=== PATIENT | male | born 1955 | race Caucasian/White ===

== ENCOUNTER 2016-11-02 09:25 | Outpatient (CLI) | payer MEDICARE, MEDICAID ==
[2016-11-02 13:35] LABS: Hemoglobin A1c 6.2 % (4.0-6.0)
[2016-11-02 13:57] LABS: #Basophils 0.2 thou/uL (0.0-0.2); #Eosinphils 0.6 thou/uL (0.0-0.7); #Lymphocytes 4.2 thou/uL (1.20-3.40); #Monocytes 0.6 thou/uL (0.11-0.59); %Basophils 1.2 % (0.0-1.0); %Eosinophils 4.2 % (0.0-10.0); %Monocytes 4.4 % (0.0-10.0); Hematocrit 32.4 % (42.0-52.0); Mean Platelet Volume 7.4 fL (7.4-10.4); Red Blood Cell (RBC) Count 4.26 mill/uL (4.70-6.10); White Blood Cell (WBC) Count 13.5 thou/uL (4.8-10.8)
[2016-11-02 13:58] LABS: Anisocytosis SLIGHT = 6-15 cells (100X) (0-5/hpf); Hypochromia SLIGHT = 6-15 cells (100X) (0-5/hpf); Microcytosis SLIGHT = 6-15 cells (100X) (0-5/hpf)
== END 2016-11-02 09:26 | disposition home or self-care (01) ==
LOC: NAVSJIPCSP 09:25
PROVIDERS: ATTEND Internal Medicine
DX: E78.5 Hyperlipidemia, unspecified (principal); E11.9 Type 2 diabetes mellitus without complications; D50.9 Iron deficiency anemia, unspecified; Z79.899 Other long term (current) drug therapy
CPT/HCPCS: 36415; 80061; 83036; 85025

== ENCOUNTER 2016-11-11 12:53 | Outpatient (CLI) | payer MEDICARE, MEDICAID ==
--- NOTE | 2016-11-11 13:24 | RAD ---
RIGHT KNEE 4 VIEWS: HISTORY: Right knee pain. FINDINGS: There are mild degenerative changes. No fracture, dislocation, or bone destruction is identified. There are vascular calcifications. There is chondrocalcinosis in the tibiofemoral compartment joint spaces. IMPRESSION: Mild osteoarthritis of the right knee. POS: [facility]
== END 2016-11-11 12:54 | disposition home or self-care (01) ==
LOC: NAV RAD 12:53
PROVIDERS: ATTEND Internal Medicine
DX: M25.561 Pain in right knee (principal); M17.11 Unilateral primary osteoarthritis, right knee

== ENCOUNTER 2017-02-15 11:47 | Outpatient (CLI) | payer MEDICARE, MEDICAID ==
[2017-02-15 13:28] LABS: ALT (SGPT) 9 U/L (8-55); AST (SGOT) 13 U/L (5-34); Albumin 3.7 g/dL (3.4-4.8); Alkaline Phosphatase 114 U/L (40-150); Anion Gap 17 mmol/L (10-20); BUN (Urea Nitrogen) 20 mg/dL (8.4-25.7); Bilirubin, Total 0.3 mg/dL (0.2-1.2); Calc. Creatinine Clearance 0 mL/min (70-130); Carbon Dioxide 25 mmol/L (23-31); Chloride 101 mmol/L (98-107); Cholesterol 196 mg/dl (< 200 Desired); Estimated GFR-MDRD 49; Glucose 183 mg/dL (80-115); HDL Cholesterol 49 mg/dL (>60 Neg Risk); LDL Cholesterol, Calculated 112 mg/dL; Potassium 5.8 mmol/L (3.5-5.1); Protein, Total 6.7 g/dL (5.8-8.1); Sodium 137 mmol/L (136-145); Triglycerides 174 mg/dL (Less than 150)
[2017-02-15 14:24] LABS: #Basophils 0.1 thou/uL (0.0-0.2); #Eosinphils 0.9 thou/uL (0.0-0.7); #Lymphocytes 2.9 thou/uL (1.20-3.40); #Monocytes 0.6 thou/uL (0.11-0.59); #Neutrophils 5.8 thou/uL (1.40-6.50); %Basophils 1.1 % (0.0-1.0); %Eosinophils 8.8 % (0.0-10.0); %Lymphocytes 28.1 % (21.0-51.0); %Monocytes 5.5 % (0.0-10.0); %Neutrophils 56.6 % (42.0-75.0); Hemoglobin 10.1 g/dL (14.0-18.0); Mean Corpuscular HGB CONC 29.3 g/dL (32.0-36.0); Mean Corpuscular Volume 81.8 fl (80.0-94.0); Mean Platelet Volume 7.7 fL (7.4-10.4); Platelet Count 285 thou/uL (130-400); RBC Distribution Width 24.3 % (11.5-14.5); Red Blood Cell (RBC) Count 4.23 mill/uL (4.70-6.10); White Blood Cell (WBC) Count 10.2 thou/uL (4.8-10.8)
[2017-02-15 14:25] LABS: Hypochromia SLIGHT = 6-15 cells (100X) (0-5/hpf); MDiff Complete? YES; PLT Morphology Comment Appears Adequate
[2017-02-15 16:04] LABS: Hemoglobin A1c 5.9 % (4.0-6.0)
[2017-02-15 18:30] LABS: Hep C IgG Ab Non-Reactive (NonReactive); Hep C Index 0.05 S/CO (0-0.79)
[2017-02-15 18:49] LABS: Creatinine, Urine 57.49 mg/dL (63-166)
[2017-02-15 18:52] LABS: Microalbumin Urine 87.9 mg/dL (0.5-50.0)
== END 2017-02-15 11:48 | disposition home or self-care (01) ==
LOC: NAVSJIPCSP 11:47
PROVIDERS: ATTEND Internal Medicine
DX: Z12.5 Encounter for screening for malignant neoplasm of prostate (principal); E11.40 Type 2 diabetes mellitus with diabetic neuropathy, unspecified; D50.9 Iron deficiency anemia, unspecified; E78.5 Hyperlipidemia, unspecified; Z79.899 Other long term (current) drug therapy; Z72.89 Other problems related to lifestyle
CPT/HCPCS: 36415; 80053; 80061; 82043; 83036; 85025; 86803; G0103

== ENCOUNTER 2017-03-02 09:57 | Outpatient (CLI) | payer MEDICARE, MEDICAID ==
[2017-03-02 12:50] LABS: Anion Gap 18 mmol/L (10-20); BUN (Urea Nitrogen) 19 mg/dL (8.4-25.7); Calc. Creatinine Clearance 0 mL/min (70-130); Calcium 8.9 mg/dL (7.8-10.44); Carbon Dioxide 20 mmol/L (23-31); Chloride 111 mmol/L (98-107); Estimated GFR-MDRD 48; Glucose 173 mg/dL (80-115); Potassium 5.4 mmol/L (3.5-5.1); Sodium 144 mmol/L (136-145)
== END 2017-03-02 09:58 ==
LOC: NAVSJIPCSP 09:57
PROVIDERS: ATTEND Internal Medicine
DX: E87.5 Hyperkalemia (principal); Z79.899 Other long term (current) drug therapy
CPT/HCPCS: 36415; 80048

== ENCOUNTER 2017-05-04 10:44 | Outpatient (CLI) | payer MEDICARE, MEDICAID ==
--- NOTE | 2017-05-04 11:51 | RAD ---
THREE VIEWS RIGHT FOOT: Date: 05-04-17 History: Diabetic foot ulcer to the right fifth toe. FINDINGS: There is bandaging material overlying the fifth toe distally along the lateral margin on the frontal film. The bones appear demineralized. No obvious bone destruction. No subcutaneous gas noted. The location of the ulcer and adjacent osseo us structures makes assessment for bone destruction difficult. IMPRESSION: Bandaging material overlies the fifth digit, slightly limiting assessment. No obvious bone destructi on is seen. However, if there is concern for osteomyelitis, an MRI of the foot is advised for more s ensitive assessment. POS: [facility]
== END 2017-05-04 10:45 | disposition home or self-care (01) ==
LOC: NAV RAD 10:44
PROVIDERS: ATTEND Podiatrist Foot & Ankle Surgery
DX: E11.621 Type 2 diabetes mellitus with foot ulcer (principal); L97.519 Non-pressure chronic ulcer of other part of right foot with unspecified severity

== ENCOUNTER 2017-06-08 09:35 | Outpatient (CLI) | payer MEDICARE, MEDICAID ==
[2017-06-08 12:25] LABS: #Basophils 0.1 thou/uL (0.0-0.2); #Eosinphils 0.6 thou/uL (0.0-0.7); #Lymphocytes 3.6 thou/uL (1.20-3.40); #Monocytes 0.2 thou/uL (0.11-0.59); #Neutrophils 6.2 thou/uL (1.40-6.50); %Basophils 0.6 % (0.0-1.0); %Eosinophils 5.5 % (0.0-10.0); %Monocytes 1.8 % (0.0-10.0); %Neutrophils 58.1 % (42.0-75.0); Hemoglobin 12.4 g/dL (14.0-18.0); Mean Corpuscular Hemoglobin 28.1 pg (27.0-31.0); Mean Corpuscular Volume 90.8 fl (80.0-94.0); Platelet Count 332 thou/uL (130-400); RBC Distribution Width 14.7 % (11.5-14.5); Red Blood Cell (RBC) Count 4.39 mill/uL (4.70-6.10); White Blood Cell (WBC) Count 10.6 thou/uL (4.8-10.8)
[2017-06-08 12:57] LABS: ALT (SGPT) 6 U/L (8-55); AST (SGOT) 8 U/L (5-34); Albumin 3.9 g/dL (3.4-4.8); Alkaline Phosphatase 147 U/L (40-150); Anion Gap 21 mmol/L (10-20); BUN (Urea Nitrogen) 19 mg/dL (8.4-25.7); Bilirubin, Total 0.3 mg/dL (0.2-1.2); Calc. Creatinine Clearance 0 mL/min (70-130); Calcium 9.4 mg/dL (7.8-10.44); Carbon Dioxide 24 mmol/L (23-31); Cardiac Risk 5.4 (Less than 4.5); Chloride 100 mmol/L (98-107); Cholesterol 287 mg/dl (< 200 Desired); Estimated GFR-MDRD 38; Globulin 3.4 g/dL (2.4-3.5); Glucose 177 mg/dL (80-115); HDL Cholesterol 53 mg/dL (>60 Neg Risk); LDL Cholesterol, Calculated 193 mg/dL; Potassium 5.3 mmol/L (3.5-5.1); Protein, Total 7.3 g/dL (5.8-8.1); Sodium 140 mmol/L (136-145); Triglycerides 206 mg/dL (Less than 150)
[2017-06-08 13:07] LABS: Hemoglobin A1c 6.7 % (4.0-6.0)
== END 2017-06-08 09:36 | disposition home or self-care (01) ==
LOC: NAVSJIPCSP 09:35
PROVIDERS: ATTEND Internal Medicine
DX: E11.9 Type 2 diabetes mellitus without complications (principal); E78.5 Hyperlipidemia, unspecified; D50.9 Iron deficiency anemia, unspecified; Z79.899 Other long term (current) drug therapy
CPT/HCPCS: 36415; 80053; 80061; 83036; 85025

== ENCOUNTER 2017-06-15 10:32 | Outpatient (CLI) | payer MEDICARE, MEDICAID ==
--- NOTE | 2017-06-15 10:57 | RAD ---
RIGHT RIBS FOUR VIEWS: History: Fall, injury to right ribs. FINDINGS: No evidence of rib fracture. No other rib lesions seen. Right lung appears clear. IMPRESSION: No evidence of rib fracture identified. POS: [facility]
--- NOTE | 2017-06-15 12:14 | RAD ---
RIGHT FOOT THREE VIEWS: History: 61-year-old male with right little toe infection. Comparison: 05-04-17 FINDINGS: There is extensive bony destruction of the middle and distal phalanges of the fifth toe as well as s ignificant bony demineralization and some erosive and destructive changes of the proximal phalanx of the fifth toe, evidence for severe osteomyelitis and secondary bony and soft tissue destructive arielle nges. There is significant diffuse bony demineralization. IMPRESSION: Soft tissue and bony destructive changes of the middle and distal phalanges of the fifth toe as well as abnormal bone changes in the proximal phalanx, evidence for extensive osteomyelitis and resultan t bony and soft tissue destructive changes. POS: [facility]
== END 2017-06-15 10:33 | disposition home or self-care (01) ==
LOC: NAV RAD 10:32
PROVIDERS: ATTEND Internal Medicine
DX: E11.621 Type 2 diabetes mellitus with foot ulcer (principal); R07.81 Pleurodynia; W19.XXXA Unspecified fall, initial encounter; M86.171 Other acute osteomyelitis, right ankle and foot

== ENCOUNTER 2017-06-24 16:16 | Inpatient (IN) | payer MEDICARE, MEDICAID ==
[2017-06-24] MEDS ORDERED: Lidocaine 2% Jelly 5 ML TUBE ONE (18:28)
[2017-06-24] MEDS: Lidocaine 2% Jelly 5 ML TUBE TOP PRN (18:35)
[2017-06-24] MEDS: traMADol HCl 50 MG TAB PO PRN (19:45)
[2017-06-24] MEDS: Atorvastatin Calcium 40 MG TAB PO SCH (20:50)
[2017-06-24] MEDS: cloNIDine HCl 0.1 MG TAB PO SCH (20:50)
[2017-06-24] MEDS: Gabapentin 100 MG CAP PO SCH (20:50)
[2017-06-24] MEDS: Ibuprofen 200 MG TAB PO SCH (20:51)
[2017-06-24] MEDS: metroNIDAZOLE 500 MG TAB PO SCH (20:51)
[2017-06-24] MEDS: Ciprofloxacin 500 MG TAB PO SCH (20:51)
[2017-06-24] MEDS ORDERED: Ibuprofen 400 MG TAB PO SCH (21:00)
[2017-06-25 05:36] LABS: #Basophils 0.1 thou/uL (0.0-0.2); #Eosinphils 0.6 thou/uL (0.0-0.7); #Monocytes 0.5 thou/uL (0.11-0.59); %Basophils 1.2 % (0.0-1.0); %Eosinophils 9.2 % (0.0-10.0); %Lymphocytes 32.5 % (21.0-51.0); %Monocytes 8.4 % (0.0-10.0); %Neutrophils 48.7 % (42.0-75.0); Hemoglobin 10.7 g/dL (14.0-18.0); Mean Corpuscular Hemoglobin 27.9 pg (27.0-31.0); Mean Corpuscular Volume 89.9 fl (80.0-94.0); Mean Platelet Volume 8.7 fL (7.4-10.4); Platelet Count 215 thou/uL (130-400); RBC Distribution Width 13.3 % (11.5-14.5); Red Blood Cell (RBC) Count 3.85 mill/uL (4.70-6.10); White Blood Cell (WBC) Count 6.1 thou/uL (4.8-10.8)
[2017-06-25 05:53] LABS: ALT (SGPT) Less than 6 U/L (8-55); AST (SGOT) 8 U/L (5-34); Albumin 3.2 g/dL (3.4-4.8); Alkaline Phosphatase 114 U/L (40-150); Anion Gap 12 mmol/L (10-20); BUN (Urea Nitrogen) 16 mg/dL (8.4-25.7); Bilirubin, Total 0.4 mg/dL (0.2-1.2); Calc. Creatinine Clearance 73 mL/min (70-130); Calcium 9.6 mg/dL (7.8-10.44); Carbon Dioxide 30 mmol/L (23-31); Chloride 105 mmol/L (98-107); Estimated GFR-MDRD 57; Globulin 3.4 g/dL (2.4-3.5); Glucose 132 mg/dL (80-115); Potassium 4.4 mmol/L (3.5-5.1); Protein, Total 6.6 g/dL (5.8-8.1); Sodium 143 mmol/L (136-145)
[2017-06-25] MEDS: Ciprofloxacin 500 MG TAB PO SCH ×2 (08:20→21:47)
[2017-06-25] MEDS: Gabapentin 100 MG CAP PO SCH ×3 (08:20→21:46)
[2017-06-25] MEDS: Glimepiride 2 MG TAB PO SCH ×2 (08:20→16:55)
[2017-06-25] MEDS: Ibuprofen 200 MG TAB PO SCH ×3 (08:21→21:47)
[2017-06-25] MEDS: metroNIDAZOLE 500 MG TAB PO SCH ×2 (08:21→21:47)
--- NOTE | 2017-06-25 09:59 | HP ---
DATE OF ADMISSION: 06/25/2017 HISTORY OF PRESENT ILLNESS: Patient is a 61-year-old white male patient of Dr. Jeri stone with a history of type 2 diabetes who presented to [facility] with a necrotic right fifth toe, ad mitted to the hospital and found to have osteomyelitis of the fifth toe on x-ray and subsequently sparks d a resection of his right fifth toe. He has done well except he has a wound VAC in place and there fore he is admitted back to [facility] for care of the wound VAC. PAST MEDICAL HISTORY: Remarkable for the above-mentioned type 2 diabetes as well as bipolar disorde r, anxiety. PAST SURGICAL HISTORY: Positive for hernia repair, right hand surgery. SOCIAL HISTORY: He is , lives alone. He is a DNR. HOME MEDICATIONS: Included metformin 1000 twice daily, gabapentin 300 three times daily, glimepirid e 4 twice daily, Lipitor 40 nightly, lisinopril 40 twice daily. REVIEW OF SYSTEMS: HEENT: Denies any headaches, dizziness, change in vision or hearing, hoarseness or dysphagia. Pulmonary: Denies any cough, sputum production, pneumonia, asthma, tuberculosis. C ardiovascular: Denies any chest pain, orthopnea, paroxysmal nocturnal dyspnea or edema. Gastrointe stinal: Denies any nausea, vomiting, diarrhea, constipation, abdominal pain. Genitourinary: Denie s any dysuria, hematuria or nocturia. Musculoskeletal: He has significant pain in both feet, worse n now with amputation of right fifth toe without any manipulation. Neurologic: Denies localized nu mbness or weakness in arms or extremities. PHYSICAL EXAMINATION: GENERAL: Patient is a middle-aged white male, alert, in no acute distress, oriented x3 and cooperat smita. VITAL SIGNS: Show him to have a blood pressure of 200/86, temperature 98.7, pulse 85, respirations 20, O2 sats 93%, blood pressure previously had been 139/69. HEENT: Pupils are equal, round, and react to light and accommodation. Sclerae are anicteric. Conj unctivae pale. Oral mucous membranes are well hydrated. NECK: Supple. There are no nodes or masses. JVP is not elevated. LUNGS: Clear. CARDIAC: Show regular rhythm. No gallops or murmurs. ABDOMEN: Soft, nontender with no masses or organomegaly. SKIN/EXTREMITIES: Display no edema, clubbing, cyanosis. There is a right fifth toe removal with a small drain in place and a wound VAC over this. There is some minimal erythema over the distal ante rior aspect of the foot. NEUROLOGICAL: Shows decreased sensation to pinprick in the feet. Cranial nerves intact. Deep tend on reflexes 2+ and equal. LABORATORY DATA: Microbiology from culture shows Corynebacteria and Proteus. Sodium 143, potassium 4.3, chloride 105, bicarbonate 30, BUN 17, creatinine 1.45, glucose 149, total bilirubin 8.9. Whit e count 7200, hematocrit 33, hemoglobin 10. ASSESSMENT: 1. Resolving osteomyelitis of the right fifth toe, status post amputation. 2. Diabetes type 2 with peripheral vascular disease, fair control. We will restart medications and monitor Accu-Cheks in the hospital. 3. Bipolar disorder with some noncompliance with treatment and we will follow closely. 4. Hypertension, controlled to goal. PLAN: 1. Restart home medications including amlodipine and Lipitor. 2. Restart postop antibiotics, Cipro, Flagyl. 3. Accu-Cheks, we will monitor closely for good control. 4. Wound care and wound VAC as needed.
[2017-06-25] MEDS: Atorvastatin Calcium 40 MG TAB PO SCH (21:47)
[2017-06-25] MEDS: cloNIDine HCl 0.1 MG TAB PO SCH (21:47)
[2017-06-26] MEDS ORDERED: Dextrose 50% Abboject 50 ML SYRINGE SLOW IVP PRN (08:17)
[2017-06-26] MEDS ORDERED: Dextrose 5% in Water 1,000 ML IV PRN (08:17)
[2017-06-26] MEDS ORDERED: HumaLOG 300 UNITS/3 ML VIAL SC PRN (08:17)
[2017-06-26] MEDS: Glimepiride 2 MG TAB PO SCH ×2 (08:24→17:13)
[2017-06-26] MEDS: metroNIDAZOLE 500 MG TAB PO SCH ×2 (08:25→20:46)
[2017-06-26] MEDS: Ibuprofen 200 MG TAB PO SCH ×3 (08:25→20:43)
[2017-06-26] MEDS: Ciprofloxacin 500 MG TAB PO SCH ×2 (08:25→20:44)
[2017-06-26] MEDS: Gabapentin 100 MG CAP PO SCH ×3 (08:25→20:42)
--- NOTE | 2017-06-26 08:57 | PRG ---
DATE OF SERVICE: 06/26/2017 SUBJECTIVE: The patient feels well at rest with minimal pain in the foot and in fact had been walki ng despite the wound VAC in place, having no fever or chills. OBJECTIVE: VITAL SIGNS: Shows blood pressure 140/69, temperature 98, pulse 69, respirations 17, O2 sats 93% on room air. EXTREMITIES: Right foot shows wound VAC over the right fifth toe amputation with no erythema and mi nimal tenderness surrounding the wound VAC. LUNGS: Clear. CARDIAC: Examination showed regular rhythm. LABORATORY DATA: White count yesterday was normal 6,100, hematocrit 34, hemoglobin 10, glucose 132. ASSESSMENT: 1. Resolving amputation of right fifth toe secondary to osteomyelitis, wound VAC in place. 2. Stable type 2 diabetes. 3. Stable bipolar disorder. PLAN: Continue wound VAC until tomorrow, discuss with Dr. Kramer tomorrow. Continue oral Cipro and do Accu-Cheks twice daily.
[2017-06-26] MEDS: Atorvastatin Calcium 40 MG TAB PO SCH (20:44)
[2017-06-26] MEDS: cloNIDine HCl 0.1 MG TAB PO SCH (20:44)
[2017-06-27] MEDS: Glimepiride 2 MG TAB PO SCH ×2 (08:50→17:37)
[2017-06-27] MEDS: Ciprofloxacin 500 MG TAB PO SCH ×2 (08:51→21:07)
[2017-06-27] MEDS: Gabapentin 100 MG CAP PO SCH ×3 (08:51→21:07)
[2017-06-27] MEDS: metroNIDAZOLE 500 MG TAB PO SCH ×2 (08:51→21:07)
[2017-06-27] MEDS: Ibuprofen 200 MG TAB PO SCH ×3 (08:51→21:07)
[2017-06-27] MEDS: Lidocaine 2% Jelly 5 ML TUBE TOP PRN (12:55)
--- NOTE | 2017-06-27 19:23 | PRG ---
DATE OF SERVICE: 06/27/2017 SUBJECTIVE: The patient feels well with minimal pain in his right foot. No chest pain, no shortnes s of breath, no nausea or vomiting. He is upset because of his sugars have been elevated. He has n ot been restarted back on his metformin. OBJECTIVE: VITAL SIGNS: Shows his blood pressure is 183/82, pulse is 65, respirations 18, temperature 97, O2 s ats 93% on room air. Accu-Cheks reveal elevated up to 309 last night and 294 today. LUNGS: Clear. CARDIAC: Regular rhythm. EXTREMITIES: Right foot, healing well with a wound VAC in place. ASSESSMENT: 1. Uncontrolled diabetes secondary to discontinuation of metformin. 2. Peripheral vascular disease, status post removal, right fifth toe secondary to osteomyelitis, he aling well. 3. Bipolar disorder, slightly agitated. PLAN: Continue wound VAC. Restart metformin 1000 twice daily. Continue Accu-Cheks twice daily. C ontinue Cipro twice daily. We will also start on lisinopril 10 mg daily in addition to amlodipine a nd clonidine he gets.
[2017-06-27] MEDS: cloNIDine HCl 0.1 MG TAB PO SCH (21:07)
[2017-06-27] MEDS: Atorvastatin Calcium 40 MG TAB PO SCH (21:07)
[2017-06-28] MEDS: metroNIDAZOLE 500 MG TAB PO SCH ×2 (08:51→21:09)
[2017-06-28] MEDS: Ciprofloxacin 500 MG TAB PO SCH ×2 (08:51→21:08)
[2017-06-28] MEDS: Ibuprofen 200 MG TAB PO SCH ×3 (08:52→21:09)
[2017-06-28] MEDS: Lisinopril 10 MG TAB PO SCH (08:52)
[2017-06-28] MEDS: Gabapentin 100 MG CAP PO SCH ×3 (08:52→21:11)
[2017-06-28] MEDS: Glimepiride 2 MG TAB PO SCH ×2 (08:52→17:06)
--- NOTE | 2017-06-28 13:35 | PRG ---
DATE OF SERVICE: 06/28/2017 SUBJECTIVE: Mr. Corado is doing well. Denies any complaints. He is mobile in his wheelchair. He h as a wound VAC placed to his toe amputation site. Discussed with therapy and they state that his wo und is pretty small and hardly putting in and out anything and they are wondering whether he needs t o continue on the wound VAC. I advised them to talk to the surgeon who placed a wound VAC to make s ure all of these are on the same page. He also wants his gabapentin increased to 300 mg t.i.d. ney briones is what I had him on just before he went to the hospital. He is tolerating his other medicines. His blood sugars have been running high despite being on the Amaryl and metformin. I am going to ad d alogliptin to his regimen. No other concerns or questions. OBJECTIVE: VITAL SIGNS: He is afebrile, heart rate 69, respirations 19, oxygen saturation 95%, and blood press ure 131/74. CARDIOVASCULAR SYSTEM: S1, S2 plus. RESPIRATORY SYSTEM: Normal vesicular breath sounds. ABDOMEN: Soft, nontender, bowel sounds heard in all quadrants. EXTREMITIES: Without cyanosis or clubbing. Right foot with dressing and wound VAC placement. LABORATORY VALUES: Blood sugars are 309, 200, 148, 294, 323, 381, 203, and 218. IMPRESSION: 1. Diabetes mellitus, not well controlled. 2. Osteomyelitis of right foot, status post toe amputation of his wound VAC. 3. Hypertension. 4. Dyslipidemia. 5. Peripheral vascular disease. 6. Longstanding history of noncompliance. 7. Diabetic peripheral neuropathy. PLAN: 1. Increase gabapentin to 300 mg t.i.d. 2. Add alogliptin 25 mg daily. 3. Continue sliding scale coverage. 4. Deep venous thrombosis prophylaxis. 5. Decubitus precautions. 6. Stress ulcer prophylaxis. 7. Routine laboratory values. 8. Continue antibiotics. 9. Physical therapy to discuss with surgeon about the wound VAC. 10. Discussed with the patient in detail and all questions answered. No family at the bedside.
[2017-06-28] MEDS: cloNIDine HCl 0.1 MG TAB PO SCH (21:08)
[2017-06-28] MEDS: Atorvastatin Calcium 40 MG TAB PO SCH (21:08)
[2017-06-28] MEDS: Enoxaparin Sodium 40 MG/0.4 ML SYRINGE SC SCH (21:09)
[2017-06-29 05:22] LABS: #Basophils 0.1 thou/uL (0.0-0.2); #Eosinphils 0.5 thou/uL (0.0-0.7); #Lymphocytes 2.3 thou/uL (1.20-3.40); #Monocytes 0.4 thou/uL (0.11-0.59); #Neutrophils 3.1 thou/uL (1.40-6.50); %Basophils 1.5 % (0.0-1.0); %Eosinophils 8.5 % (0.0-10.0); %Lymphocytes 35.3 % (21.0-51.0); %Monocytes 6.5 % (0.0-10.0); %Neutrophils 48.3 % (42.0-75.0); Hemoglobin 10.5 g/dL (14.0-18.0); Mean Corpuscular HGB CONC 30.6 g/dL (32.0-36.0); Mean Corpuscular Hemoglobin 27.7 pg (27.0-31.0); Mean Corpuscular Volume 90.7 fl (80.0-94.0); Mean Platelet Volume 8.3 fL (7.4-10.4); Platelet Count 202 thou/uL (130-400); RBC Distribution Width 13.7 % (11.5-14.5); Red Blood Cell (RBC) Count 3.77 mill/uL (4.70-6.10); White Blood Cell (WBC) Count 6.4 thou/uL (4.8-10.8)
[2017-06-29 05:37] LABS: Anion Gap 14 mmol/L (10-20); BUN (Urea Nitrogen) 35 mg/dL (8.4-25.7); Calc. Creatinine Clearance 61 mL/min (70-130); Carbon Dioxide 22 mmol/L (23-31); Chloride 111 mmol/L (98-107); Estimated GFR-MDRD 47; Glucose 121 mg/dL (80-115); Potassium 4.3 mmol/L (3.5-5.1); Sodium 143 mmol/L (136-145)
[2017-06-29] MEDS: Glimepiride 2 MG TAB PO SCH ×2 (08:07→16:54)
[2017-06-29] MEDS: Alogliptin Benzoate 25 MG TABLET PO SCH (08:08)
[2017-06-29] MEDS: Ciprofloxacin 500 MG TAB PO SCH ×2 (08:09→20:55)
[2017-06-29] MEDS: Ibuprofen 200 MG TAB PO SCH ×3 (08:09→20:56)
[2017-06-29] MEDS: Lisinopril 10 MG TAB PO SCH (08:09)
[2017-06-29] MEDS: Gabapentin 100 MG CAP PO SCH ×3 (08:09→20:55)
[2017-06-29] MEDS: metroNIDAZOLE 500 MG TAB PO SCH ×2 (08:10→20:56)
[2017-06-29] MEDS: traMADol HCl 50 MG TAB PO PRN (14:05)
[2017-06-29] MEDS: cloNIDine HCl 0.1 MG TAB PO SCH (20:55)
[2017-06-29] MEDS: Enoxaparin Sodium 40 MG/0.4 ML SYRINGE SC SCH (20:55)
[2017-06-29] MEDS: Atorvastatin Calcium 40 MG TAB PO SCH (20:55)
--- NOTE | 2017-06-29 22:34 | PRG ---
DATE OF ADMISSION: 06/24/2017 DATE OF SERVICE: 06/29/2017 HISTORY OF PRESENT ILLNESS: Mr. Corado is a 61-year-old white male patient of Dr. Gilliland that present ed to the ER with necrotic fifth toe. He had had amputated secondary to osteomyelitis. He was walker sferred here with wound VAC for continued physical therapy and occupational therapy. The patient wa s also noted to have type 2 diabetes, anxiety disorder and bipolar disorder. SUBJECTIVE: The patient states he is doing well. He has no complaints today. He has very little d rainage and understood that Dr. Gilliland will put in a call to Dr. Miguelangel Kramer to see if we can discont inue the wound VAC just to wound care. OBJECTIVE: VITAL SIGNS: Reveal blood pressure 150/72, pulse 67-86, respirations 18, O2 sat 94% to 95%. T-max is 98.3. GENERAL: This is a well-developed, well-nourished, elderly white male, in no apparent distress at t his time. HEENT: Reveals normocephalic, nontraumatic cranium. Pupils are equally round and reactive. Extrao cular movements are intact. Nose and throat are slightly dry. Multiple dental caries. NECK: Supple, without masses, nodes or bruits. LUNGS: Chest is clear to auscultation. No rales, rhonchi or wheezes are heard. No cough is noted. HEART: Reveals a regular rate and rhythm. ABDOMEN: Soft, nontender, without organomegaly, normal bowel sounds are noted. No rebound or guard ing is noted. GENITOURINARY: Deferred. EXTREMITIES: Reveal no clubbing, cyanosis or edema. Wound VAC is placed over the right fifth toe a mputation area. The patient has no significant pain there. LABORATORY DATA: Today reveal white count of 6400 with hemoglobin 10.5, hematocrit 34.5 and a plate let count of 202,000. Sodium is 143, potassium is 4.3, chloride 111, carbon dioxide 22 with a BUN of 35, creatinine 1.52. GFR is 47. The patient's point of care sugars revealed sugar this morning is 121 fasting, 158 befo re lunch and 81 before supper. ASSESSMENT: 1. Osteomyelitis of the right fifth toe, status post amputation. 2. Diabetes, type 2 with peripheral vascular disease, fairly good control. 3. Bipolar disorder with noncompliance in the past. 4. Hypertension, well controlled. PLAN: 1. Continue home medications of amlodipine and Lipitor. 2. Continue IV antibiotics, Cipro and Flagyl for undetermined amount of time. 3. Continue Accu-Cheks to monitor the patient's diabetes a.c. and at bedtime. 4. Continue deep venous thrombosis prophylaxis. 5. Continue stress ulcer prophylaxis. 6. Decubitus precautions. 7. Physical therapy and occupational therapy.
[2017-06-30] MEDS: Glimepiride 2 MG TAB PO SCH ×2 (08:13→17:06)
[2017-06-30] MEDS: Alogliptin Benzoate 25 MG TABLET PO SCH (08:15)
[2017-06-30] MEDS: Lisinopril 10 MG TAB PO SCH (08:16)
[2017-06-30] MEDS: Ibuprofen 200 MG TAB PO SCH ×3 (08:16→20:48)
[2017-06-30] MEDS: Gabapentin 100 MG CAP PO SCH ×3 (08:16→20:48)
[2017-06-30] MEDS: Ciprofloxacin 500 MG TAB PO SCH ×2 (08:16→20:47)
[2017-06-30] MEDS: metroNIDAZOLE 500 MG TAB PO SCH ×2 (08:18→20:48)
[2017-06-30] MEDS: Atorvastatin Calcium 40 MG TAB PO SCH (20:47)
[2017-06-30] MEDS: cloNIDine HCl 0.1 MG TAB PO SCH (20:48)
[2017-06-30] MEDS: Enoxaparin Sodium 40 MG/0.4 ML SYRINGE SC SCH (20:48)
--- NOTE | 2017-06-30 21:13 | PRG ---
DATE OF ADMISSION: 06/24/2017 DATE OF SERVICE: 06/30/2017 HISTORY OF PRESENT ILLNESS: Mr. Corado is a 61-year-old white male, patient of Dr. Tobar. He had a necrotic fifth toe which had to be amputated. Eventually was stabilized, placed on a wound VAC an d transferred to [facility] for continued physical therapy and occupational therapy. SUBJECTIVE: The patient states he is doing well today. He is eating well. He has no complaints ab out the food here all. OBJECTIVE: VITAL SIGNS: Reveal blood pressure is 103/53, pulse of 61, respirations 18, O2 sat 92%, temperature max 97.3. PHYSICAL EXAMINATION: GENERAL: This is a well-developed, well-nourished, very pleasant white male in no apparent distress at this time. HEENT: Reveals normocephalic, nontraumatic cranium. Pupils are equally round and reactive. Extrao cular movements intact. Nose and throat are clear, but dry. NECK: Supple, without masses, nodes or bruits. CHEST: Clear to auscultation. No rales, rhonchi or wheezes are heard. CARDIOVASCULAR: Heart reveals a regular rate and rhythm without murmurs, gallops or rubs. ABDOMEN: Soft, nontender, without organomegaly, normal bowel sounds are noted. No rebound or guard ing is noted. : Deferred. EXTREMITIES: Reveal no clubbing, cyanosis or edema. Wound VAC is in place over the right fifth toe . The patient states there was a quite a bit of swelling this morning, but is much resolved this af ternoon. He states this morning it was also very red and swollen looking. It is much improved, he is back to his normal. He has much less pain. Although, he does not have very much drainage. ASSESSMENT: 1. Osteomyelitis, right fifth toe, status post amputation. 2. Diabetes type 2. 3. Peripheral vascular disease. 4. Bipolar disorder, noncompliance in the past. 5. Hypertension, well controlled. PLAN: 1. Continue present medications. 2. Continue IV antibiotics including Cipro and Flagyl. 3. Accu-Cheks a.c. and at bedtime. 4. Deep venous thrombosis prophylaxis. 5. Stress ulcer prophylaxis. 6. Decubitus precautions. 7. Physical therapy and occupational therapy.
--- NOTE | 2017-07-01 08:02 | PRG ---
DATE OF SERVICE: 07/01/2017 DATE OF ADMISSION: 06/24/2017 HISTORY OF PRESENT ILLNESS: Mr. Corado is a 61-year-old white male patient of Dr. Mcgarry. Un fortunately, developed necrotic fifth toe, which had to be amputated. He was placed on wound VAC an d transferred to [facility] for continued physical therapy and occupational therapy and moved back here. SUBJECTIVE: The patient states he would like to get restarted on his omeprazole. He states he take s omeprazole 40 mg twice a day as his routine medicines at home and he has began to develop some ind igestion. He has no other complaints today. PHYSICAL EXAMINATION: VITAL SIGNS: Reveal blood pressure this morning was 103/53, pulse 61-80, respirations 18, O2 sat 93 %, and temperature 97.8. GENERAL: This is a well-developed, well-nourished, very pleasant white male in no apparent distress at this time. HEENT: Reveals normocephalic and nontraumatic cranium. Pupils are equal, round and reactive. Extr aocular movements intact. Nose and throat are clear and dry. NECK: Supple, without masses, nodes or bruits. CHEST: Clear to auscultation. No rales, no rhonchi, no wheezes or cough is heard. HEART: Reveals a regular rate and rhythm without murmurs, gallops or rubs. ABDOMEN: Soft and nontender, without organomegaly, normal bowel sounds are noted. No rebound or gu arding is noted. : Deferred. EXTREMITIES: Reveal wound VAC still over the right fifth toe area. The foot is not significantly s wollen or red. The patient has no significant complaints of pain. He states he feels it is much be tter and much less swollen. ASSESSMENT: 1. Osteomyelitis, right fifth toe, status post amputation, on IV antibiotics. 2. Diabetes type 2, stable, but the patient refuses insulin. 3. Peripheral vascular disease. 4. Bipolar disorder, noncompliance in the past. 5. Hypertension. 6. Patient states he is allergic to INSULIN and states that happened in the . PLAN: 1. Continue present medications. 2. Continue IV antibiotics including Cipro and Flagyl. 3. Continue Accu-Cheks a.c. and at bedtime. 4. Deep venous thrombosis prophylaxis. 5. Stress ulcer prophylaxis. 6. Decubitus precautions. 7. Physical therapy and occupational therapy.
[2017-07-01] MEDS: Gabapentin 100 MG CAP PO SCH ×3 (09:12→21:03)
[2017-07-01] MEDS: Lisinopril 10 MG TAB PO SCH (09:12)
[2017-07-01] MEDS: Ibuprofen 200 MG TAB PO SCH ×3 (09:13→21:02)
[2017-07-01] MEDS: Alogliptin Benzoate 25 MG TABLET PO SCH (09:16)
[2017-07-01] MEDS: Lidocaine 2% Jelly 5 ML TUBE TOP PRN (13:15)
[2017-07-01] MEDS: Glimepiride 2 MG TAB PO SCH ×2 (13:40→16:59)
[2017-07-01] MEDS ORDERED: Diphenoxylate HCl/Atropine Tablet PO PRN (14:11)
[2017-07-01] MEDS: Atorvastatin Calcium 40 MG TAB PO SCH (21:02)
[2017-07-01] MEDS: Enoxaparin Sodium 40 MG/0.4 ML SYRINGE SC SCH (21:03)
[2017-07-01] MEDS: cloNIDine HCl 0.1 MG TAB PO SCH (21:03)
[2017-07-02] MEDS: Glimepiride 2 MG TAB PO SCH ×2 (09:05→20:48)
[2017-07-02] MEDS: Lisinopril 10 MG TAB PO SCH (09:05)
[2017-07-02] MEDS: Alogliptin Benzoate 25 MG TABLET PO SCH (09:09)
[2017-07-02] MEDS: Gabapentin 100 MG CAP PO SCH ×3 (09:09→20:47)
[2017-07-02] MEDS: Ibuprofen 200 MG TAB PO SCH ×3 (09:09→20:47)
--- NOTE | 2017-07-02 12:16 | PRG ---
MEDICAL PROGRESS NOTE DATE OF SERVICE: 07/02/2017 SUBJECTIVE: The patient is lying in the bed, resting well with no complaints of pain in his foot an d no complaints of hypoglycemia, chest pain or palpitations; however, objective shows that his Accu- Cheks is down to 62, yesterday 66. No complaints. OBJECTIVE: VITAL SIGNS: Show blood pressure is up to 181/72 this morning compared to 123/58 yesterday. LUNGS: Clear. CARDIAC: Examination showed regular rhythm. ASSESSMENT: 1. Type 2 diabetes, recurrent hypoglycemia, on glimepiride 4 mg twice daily as well as metformin an d we will decrease glimepiride to 2 mg twice daily. 2. Osteomyelitis, right fifth toe, status post amputation, on IV antibiotics, doing well. 3. Peripheral vascular disease, stable. 4. Bipolar, stable. 5. Hypertension, stable. PLAN: 1. Decrease glimepiride to twice daily. Continue other meds including metformin and monitor Accu-C heks. 2. Continue blood pressure control. 3. Stool for C. diff as the patient states he is having diarrhea despite Lomotil.
[2017-07-02] MEDS: Atorvastatin Calcium 40 MG TAB PO SCH (20:47)
[2017-07-02] MEDS: cloNIDine HCl 0.1 MG TAB PO SCH (20:47)
[2017-07-02] MEDS: Enoxaparin Sodium 40 MG/0.4 ML SYRINGE SC SCH (20:48)
[2017-07-03] MEDS: Glimepiride 2 MG TAB PO SCH (09:06)
[2017-07-03] MEDS: Alogliptin Benzoate 25 MG TABLET PO SCH (09:06)
[2017-07-03] MEDS: Ibuprofen 200 MG TAB PO SCH ×3 (09:06→20:36)
[2017-07-03] MEDS: Lisinopril 10 MG TAB PO SCH (09:06)
[2017-07-03] MEDS: Gabapentin 100 MG CAP PO SCH (09:06)
[2017-07-03] MEDS: Gabapentin 300 MG CAP PO SCH ×2 (15:22→20:37)
--- NOTE | 2017-07-03 15:54 | PRG ---
DATE OF SERVICE: 07/03/2017 SUBJECTIVE: The patient feels well, is visiting with friends in the room. He states he has had no symptoms of hypoglycemia, had no pain in his leg. No shortness of breath, no headaches or dizziness , has not been smoking. OBJECTIVE: Shows blood pressure is up to 181/81, pulse 76, respirations 20, O2 sats 91% on room air . Laboratory show his Accu-Cheks is down to 61 this morning, but he states he did not receive his g limepiride last night, only metformin. At this time, he was supposedly obtaining 2 mg glimepiride t wice a day and yesterday was taking 4 mg twice a day. His right foot is healing well with wound VAC in place. Lungs are clear. Cardiac examination shows regular rhythm. ASSESSMENT: 1. Resolving amputation right fifth toe for osteomyelitis on IV antibiotics and wound VAC, doing we ll. 2. Bipolar, stable. 3. Hypertension, uncontrolled. We will increase lisinopril to 20 daily. 4. Type 2 diabetes with recurrent asymptomatic hypoglycemia. We will decrease glimepiride to only 2 mg in the morning and continue metformin 1000 mg twice daily.
[2017-07-03] MEDS: Enoxaparin Sodium 40 MG/0.4 ML SYRINGE SC SCH (20:36)
[2017-07-03] MEDS: cloNIDine HCl 0.1 MG TAB PO SCH (20:36)
[2017-07-03] MEDS: Atorvastatin Calcium 40 MG TAB PO SCH (20:37)
[2017-07-04] MEDS: Glimepiride 2 MG TAB PO SCH (07:47)
[2017-07-04] MEDS: Gabapentin 300 MG CAP PO SCH ×3 (09:09→21:11)
[2017-07-04] MEDS: Ibuprofen 200 MG TAB PO SCH ×3 (09:09→21:11)
[2017-07-04] MEDS: Alogliptin Benzoate 25 MG TABLET PO SCH (09:09)
[2017-07-04] MEDS: Lisinopril 20 MG TAB PO SCH (09:10)
[2017-07-04] MEDS: traMADol HCl 50 MG TAB PO PRN (14:36)
[2017-07-04] MEDS: Lidocaine 2% Jelly 5 ML TUBE TOP PRN (14:37)
[2017-07-04] MEDS: Enoxaparin Sodium 40 MG/0.4 ML SYRINGE SC SCH (21:10)
[2017-07-04] MEDS: Atorvastatin Calcium 40 MG TAB PO SCH (21:11)
[2017-07-04] MEDS: cloNIDine HCl 0.1 MG TAB PO SCH (21:11)
[2017-07-05] MEDS: Alogliptin Benzoate 25 MG TABLET PO SCH (07:52)
[2017-07-05] MEDS: Glimepiride 2 MG TAB PO SCH (07:52)
[2017-07-05] MEDS: Lisinopril 20 MG TAB PO SCH (07:53)
[2017-07-05] MEDS: Gabapentin 300 MG CAP PO SCH ×3 (07:53→21:36)
[2017-07-05] MEDS: Ibuprofen 200 MG TAB PO SCH ×3 (07:53→17:15)
[2017-07-05] MEDS: Atorvastatin Calcium 40 MG TAB PO SCH (21:36)
[2017-07-05] MEDS: cloNIDine HCl 0.1 MG TAB PO SCH (21:36)
[2017-07-05] MEDS: Enoxaparin Sodium 40 MG/0.4 ML SYRINGE SC SCH (21:37)
[2017-07-06] MEDS: Ibuprofen 200 MG TAB PO SCH ×2 (07:53→11:55)
[2017-07-06] MEDS: Glimepiride 2 MG TAB PO SCH (07:53)
[2017-07-06] MEDS: Gabapentin 300 MG CAP PO SCH ×3 (07:56→20:34)
[2017-07-06] MEDS: Alogliptin Benzoate 25 MG TABLET PO SCH (07:56)
[2017-07-06] MEDS: Lisinopril 20 MG TAB PO SCH ×2 (07:57→07:58)
[2017-07-06] MEDS ORDERED: Ibuprofen 200 MG TAB PO PRN (12:51)
--- NOTE | 2017-07-06 13:25 | PRG ---
DATE OF SERVICE: 07/06/2017 SUBJECTIVE: Mr. Corado is doing well. Denies any complaints, tolerating his wound VAC. No fever or chills. OBJECTIVE: VITAL SIGNS: He is afebrile, heart rate is 75, respirations 18, oxygen saturation is 93%, blood pre ssure is 151/69. CARDIOVASCULAR SYSTEM: S1, S2 plus. RESPIRATORY SYSTEM: Normal vesicular breath sounds. ABDOMEN: Soft, nontender, bowel sounds heard in all quadrants. EXTREMITIES: Right foot with wound VAC placement. CENTRAL NERVOUS SYSTEM: Evidence for peripheral neuropathy. IMPRESSION: 1. Right foot osteomyelitis, status post fifth toe amputation and wound VAC placement. 2. Peripheral neuropathy. 3. Diabetes mellitus, type 2. 4. Hypertension. 5. Dyslipidemia. 6. Peripheral vascular disease. 7. Longstanding history of noncompliance. PLAN: 1. Continue current medications. 2. Routine laboratory values. 3. Change aspirin to Ecotrin. 4. Change ibuprofen to p.r.n. since his pain seems to be better controlled. 5. Continue wound VAC treatment. 6. Discussed with patient in detail and all questions answered.
[2017-07-06] MEDS: Enoxaparin Sodium 40 MG/0.4 ML SYRINGE SC SCH (20:33)
[2017-07-06] MEDS: Atorvastatin Calcium 40 MG TAB PO SCH (20:34)
[2017-07-06] MEDS: cloNIDine HCl 0.1 MG TAB PO SCH (20:34)
[2017-07-07 05:25] LABS: #Basophils 0.1 thou/uL (0.0-0.2); #Eosinphils 1.1 thou/uL (0.0-0.7); #Lymphocytes 2.8 thou/uL (1.20-3.40); #Monocytes 0.4 thou/uL (0.11-0.59); #Neutrophils 3.5 thou/uL (1.40-6.50); %Basophils 1.3 % (0.0-1.0); %Eosinophils 13.8 % (0.0-10.0); %Lymphocytes 35.9 % (21.0-51.0); %Monocytes 4.9 % (0.0-10.0); %Neutrophils 44.1 % (42.0-75.0); Hemoglobin 10.4 g/dL (14.0-18.0); Mean Corpuscular HGB CONC 32.1 g/dL (32.0-36.0); Mean Corpuscular Hemoglobin 30.4 pg (27.0-31.0); Mean Corpuscular Volume 94.6 fl (80.0-94.0); Mean Platelet Volume 8.9 fL (7.4-10.4); Platelet Count 257 thou/uL (130-400); RBC Distribution Width 13.9 % (11.5-14.5); Red Blood Cell (RBC) Count 3.42 mill/uL (4.70-6.10); White Blood Cell (WBC) Count 7.8 thou/uL (4.8-10.8)
[2017-07-07 05:42] LABS: Anion Gap 13 mmol/L (10-20); BUN (Urea Nitrogen) 36 mg/dL (8.4-25.7); Calc. Creatinine Clearance 62 mL/min (70-130); Calcium 9.3 mg/dL (7.8-10.44); Carbon Dioxide 24 mmol/L (23-31); Chloride 112 mmol/L (98-107); Estimated GFR-MDRD 47; Glucose 93 mg/dL (80-115); Potassium 5.2 mmol/L (3.5-5.1); Sodium 144 mmol/L (136-145)
[2017-07-07] MEDS: Glimepiride 2 MG TAB PO SCH (07:41)
[2017-07-07] MEDS: Lisinopril 20 MG TAB PO SCH (07:41)
[2017-07-07] MEDS: Aspirin 81 mg Enteric Coated Tablet PO SCH (07:41)
[2017-07-07] MEDS: Gabapentin 300 MG CAP PO SCH ×3 (07:42→20:48)
[2017-07-07] MEDS: Alogliptin Benzoate 25 MG TABLET PO SCH (07:42)
--- NOTE | 2017-07-07 13:42 | PRG ---
DATE OF SERVICE: 07/07/2017 SUBJECTIVE: Mr. Corado is doing well. Denies any complaints. His wound VAC was removed due to mace ration and he just has a silver nitrate Aquacel AG packing. He denies any complaints. He denies an y fever or chills. OBJECTIVE: VITAL SIGNS: He is afebrile, heart rate 76, respirations 18, oxygen saturation 94%, blood pressure 134/64. CARDIOVASCULAR SYSTEM: S1, S2 plus. RESPIRATORY SYSTEM: Normal vesicular breath sounds. ABDOMEN: Soft, nontender, bowel sounds heard in all quadrants. EXTREMITIES: Without cyanosis or clubbing. Right foot wound with dressing. LABORATORY VALUES: Sodium 144, potassium slightly high at 5.2, BUN and creatinine 36 and 1.51. Blo od sugars are 60, 130, 92, 88 and 104. His CBC shows a white count of 7.8 with H\T\H of 10.4 and 32 .4. IMPRESSION: 1. Right foot osteomyelitis, status post right fifth toe amputation and now wound with dressing. W ound VAC has been discontinued. 2. Diabetes mellitus type 2. 3. Hypertension. 4. Dyslipidemia. 5. Chronic kidney disease. 6. Mild hyperkalemia. PLAN: 1. Continue to monitor laboratory values. 2. Continue antibiotics. 3. Wound care. 4. Nutritional support. 5. Deep venous thrombosis prophylaxis. 6. Decubitus precaution. 7. Stress ulcer prophylaxis. 8. Discussed with nursing, the trailer he was living in was apparently cleaned and moved by his sis ter-in-law, patient is not aware of it. I have advised them that I will consult medical social worker and start the discharge planning. Anticipate discharge him next week.
[2017-07-07] MEDS: Atorvastatin Calcium 40 MG TAB PO SCH (20:47)
[2017-07-07] MEDS: Enoxaparin Sodium 40 MG/0.4 ML SYRINGE SC SCH (20:48)
[2017-07-07] MEDS: cloNIDine HCl 0.1 MG TAB PO SCH (20:48)
[2017-07-08] MEDS: Aspirin 81 mg Enteric Coated Tablet PO SCH (08:10)
[2017-07-08] MEDS: Glimepiride 2 MG TAB PO SCH (08:10)
[2017-07-08] MEDS: Alogliptin Benzoate 25 MG TABLET PO SCH (08:10)
[2017-07-08] MEDS: Gabapentin 300 MG CAP PO SCH ×3 (08:10→20:51)
[2017-07-08] MEDS: Lisinopril 20 MG TAB PO SCH (08:11)
--- NOTE | 2017-07-08 09:24 | PRG ---
DATE OF SERVICE: 07/08/2017 SUBJECTIVE: Mr. Corado is doing well. Denies any complaints, resting comfortably. OBJECTIVE: VITAL SIGNS: He is afebrile, heart rate is 63, respirations are 18, oxygen saturation 93%, blood pr essure 134/64. CARDIOVASCULAR: S1, S2 plus. RESPIRATORY: Normal vesicular breath sounds. ABDOMEN: Soft, nontender, bowel sounds heard in all quadrants. EXTREMITIES: Without cyanosis or clubbing. Right foot with dressing. IMPRESSION: 1. Right foot osteomyelitis status post fifth toe amputation. 2. Diabetes mellitus type 2, much better controlled. 3. Hypertension, well controlled. 4. Chronic kidney disease. 5. Dyslipidemia. 6. Longstanding history of noncompliance. PLAN: 1. Continue wound care and oral antibiotics. 2. Nutritional support. 3. Deep venous thrombosis prophylaxis. 4. Decubitus precautions. 5. Stress ulcer prophylaxis. 6. Accu-Cheks with sliding scale coverage. 7. Physical therapy. 8. Discharge planning. 9. Anticipate discharging him once the maceration improves and the wound continues to heal. I anti cipate discharge middle of next week. Case management has been informed to start discharge planning . There is apparently some family issues in the sense that he apparently was living in a trailer, ney briones belonged to his [id number], but the trailer apparently has been moved and he does not have a pl kadi to go, but apparently he is unaware of the situation.
[2017-07-08] MEDS: Atorvastatin Calcium 40 MG TAB PO SCH (20:51)
[2017-07-08] MEDS: cloNIDine HCl 0.1 MG TAB PO SCH (20:52)
[2017-07-08] MEDS: Enoxaparin Sodium 40 MG/0.4 ML SYRINGE SC SCH (20:52)
[2017-07-09] MEDS: Glimepiride 2 MG TAB PO SCH (08:27)
[2017-07-09] MEDS: Alogliptin Benzoate 25 MG TABLET PO SCH (08:28)
[2017-07-09] MEDS: Lisinopril 20 MG TAB PO SCH (08:29)
[2017-07-09] MEDS: Aspirin 81 mg Enteric Coated Tablet PO SCH (08:29)
[2017-07-09] MEDS: Gabapentin 300 MG CAP PO SCH ×3 (08:29→20:32)
--- NOTE | 2017-07-09 11:18 | PRG ---
DATE OF SERVICE: 07/09/2017 HISTORY OF PRESENT ILLNESS: Mr. Corado is a 61-year-old white male patient of Dr. Gilliland that develop ed a necrotic fifth toe. It was amputated and the patient was placed on wound VAC. The patient was transferred to [facility] for continued physical therapy, occupational therapy, and wound care. SUBJECTIVE: The patient states he is getting better. He states his sugars are excellent. He has n o complaints, states he is eating well. PHYSICAL EXAMINATION: VITAL SIGNS: Reveal blood pressure 161/72, pulse 63-83, O2 sat 95% on room air, respirations 20, T- max 98.1. GENERAL: This is a well-developed, well-nourished, very pleasant white male, in no apparent distres s at this time. HEENT: Reveals normocephalic, nontraumatic cranium. Pupils are equally round and reactive. Extrao cular movements intact. Nose and throat are slightly dry. NECK: Supple without masses, nodes or bruits. CHEST: Clear to auscultation. No rales, rhonchi or wheezes are heard. HEART: Reveals a regular rate and rhythm without murmurs, gallops or rubs. ABDOMEN: Soft, nontender without organomegaly, normal bowel sounds are noted. No rebound or guardi ng is noted. GENITOURINARY: Deferred. EXTREMITIES: Reveal no clubbing, cyanosis or edema. The patient's right foot is still covered with a dressing. IMPRESSION: 1. Right foot osteomyelitis status post amputation of the fifth toe. 2. Diabetes mellitus type 2 with excellent sugar yesterday, the high was 146 yesterday morning, bef ore lunch 105, before supper 99, before bedtime 114 and this morning fasting 111. 4. Hypertension, stable. 5. Chronic kidney disease. 6. Hyperlipidemia. 7. History of noncompliance. 8. Generalized weakness. PLAN: 1. Continue antibiotics. 2. Continue wound care. 3. Continue to monitor the patient's sugars with Accu-Cheks a.c. and at bedtime. 4. Continue deep venous thrombosis prophylaxis. 5. Continue stress prophylaxis. 6. Continue decubitus precautions. 7. Physical therapy. 8. Discharge planning for sometime next week.
[2017-07-09] MEDS: cloNIDine HCl 0.1 MG TAB PO SCH (20:31)
[2017-07-09] MEDS: Atorvastatin Calcium 40 MG TAB PO SCH (20:33)
[2017-07-09] MEDS: Enoxaparin Sodium 40 MG/0.4 ML SYRINGE SC SCH (20:33)
--- NOTE | 2017-07-10 07:52 | PRG ---
DATE OF SERVICE: 07/10/2017 DATE OF ADMISSION: 06/24/2017 HISTORY OF PRESENT ILLNESS: Mr. Corado is a very pleasant 61-year-old male patient of Dr. Shaw romero that had a necrotic fifth toe. He was amputated and the patient was placed on a wound VAC and I V antibiotics. The patient was transferred to [facility] for physical therapy, occu pational therapy, and wound care. SUBJECTIVE: The patient states he is doing well. He states his sugars continue to be well controll ed. He has no complaints. He states he is eating well. He is expecting go home on Tuesday or . PHYSICAL EXAMINATION: VITAL SIGNS: Today reveal blood pressure this morning 144/63, pulse 87, respirations 20, O2 saturat ion 94% on room air, and temperature max 97.8. GENERAL: This is a well-developed, well-nourished, pleasant white male in no apparent distress at t his time. HEENT: Reveals normocephalic and nontraumatic cranium. Pupils are equally round and reactive. Ext raocular movements intact. Nose and throat are clear. NECK: Supple without masses, nodes or bruits. CHEST: Clear to auscultation. No rales, rhonchi, wheezes or cough is heard. HEART: Reveals a regular rate and rhythm without murmurs, gallops or rubs. ABDOMEN: Soft and nontender without organomegaly. Normal bowel sounds are noted. No rebound or gu arding is noted. : Exam is deferred. EXTREMITIES: Reveal no clubbing, cyanosis or edema. The patient's right foot is covered with a michael ssing and is doing well. LABORATORY DATA: No labs were done today. His point of care sugars reveal fasting this morning 94, before bedtime last night 101, before supper 86, before lunch 93, and fasting yesterday morning 111 . IMPRESSION: 1. Right foot osteomyelitis status post amputation of the fifth toe. 2. Diabetes type 2, excellent sugars. 3. Hypertension, stable. 4. Chronic kidney disease. 5. Hyperlipidemia. 6. History of noncompliance. 7. Generalized weakness. PLAN: 1. Continue antibiotics. 2. Continue wound care. 3. Continue to follow the patient's sugars with Accu-Cheks a.c. and at bedtime. 4. Continue DVT prophylaxis. 5. Continue stress ulcer prophylaxis. 6. Continue decubitus precautions. 7. Physical therapy. 8. Discharge sometimes this next week.
[2017-07-10] MEDS: Gabapentin 300 MG CAP PO SCH ×3 (08:15→20:52)
[2017-07-10] MEDS: Aspirin 81 mg Enteric Coated Tablet PO SCH (08:15)
[2017-07-10] MEDS: Glimepiride 2 MG TAB PO SCH (08:15)
[2017-07-10] MEDS: Alogliptin Benzoate 25 MG TABLET PO SCH (08:15)
[2017-07-10] MEDS: Lisinopril 20 MG TAB PO SCH (08:16)
[2017-07-10] MEDS: cloNIDine HCl 0.1 MG TAB PO SCH (20:52)
[2017-07-10] MEDS: Enoxaparin Sodium 40 MG/0.4 ML SYRINGE SC SCH (20:52)
[2017-07-10] MEDS: Atorvastatin Calcium 40 MG TAB PO SCH (20:53)
[2017-07-11 00:11] VITALS: BMI 23.1
[2017-07-11] MEDS: Lisinopril 20 MG TAB PO SCH (09:46)
[2017-07-11] MEDS: Alogliptin Benzoate 25 MG TABLET PO SCH (09:46)
[2017-07-11] MEDS: Gabapentin 300 MG CAP PO SCH ×3 (09:46→20:26)
[2017-07-11] MEDS: Aspirin 81 mg Enteric Coated Tablet PO SCH (09:46)
[2017-07-11] MEDS: Glimepiride 2 MG TAB PO SCH (09:47)
--- NOTE | 2017-07-11 13:29 | PRG ---
DATE OF SERVICE: 07/11/2017 SUBJECTIVE: Mr. Corado is doing well. Denies any complaints. The skin maceration is much improved with discontinuing the wound VAC and just doing Aquacel AG. He is tolerating his antibiotics. He i s eager to go home. Case management has been consulted. OBJECTIVE: VITAL SIGNS: He is afebrile, heart rate is 70, respirations 18, oxygen saturation 93%, blood pressu re was elevated today 178/74. CARDIOVASCULAR: S1, S2 plus. RESPIRATORY: Normal vesicular breath sounds. ABDOMEN: Soft, nontender, bowel sounds heard in all quadrants. EXTREMITIES: Without cyanosis or clubbing. Right foot amputation area with dressing. IMPRESSION: 1. Right foot osteomyelitis status post right fifth toe amputation. 2. Diabetes mellitus type 2, much better controlled. 3. Hypertension, high today, but otherwise usually well controlled. 4. Dyslipidemia. 5. Peripheral vascular disease. 6. Longstanding history of noncompliance and chronic kidney disease. PLAN: 1. Continue current medications. 2. Await update from Wound Care to see if his wound can be managed on an outpatient basis. 3. Case management working on discharge planning. 4. Continue current medications. 5. Monitor blood pressure and adjust medications. 6. DVT and stress ulcer prophylaxis. 7. Decubitus precautions. 8. Routine laboratory values.
[2017-07-11] MEDS: Atorvastatin Calcium 40 MG TAB PO SCH (20:25)
[2017-07-11] MEDS: cloNIDine HCl 0.1 MG TAB PO SCH (20:26)
[2017-07-11] MEDS: Enoxaparin Sodium 40 MG/0.4 ML SYRINGE SC SCH (20:26)
[2017-07-12] MEDS: Aspirin 81 mg Enteric Coated Tablet PO SCH (08:04)
[2017-07-12] MEDS: Gabapentin 300 MG CAP PO SCH ×2 (08:06→16:04)
[2017-07-12] MEDS: Glimepiride 2 MG TAB PO SCH (08:07)
[2017-07-12] MEDS: Lisinopril 20 MG TAB PO SCH (08:10)
[2017-07-12] MEDS: Alogliptin Benzoate 25 MG TABLET PO SCH (08:11)
[2017-07-12 08:59] VITALS: BP 134/62; TEMP 96.9
--- NOTE | 2017-07-12 14:34 | DIS ---
DATE OF ADMISSION: 06/24/2017 DATE OF DISCHARGE: 07/12/2017 PRINCIPAL DIAGNOSIS: Right foot osteomyelitis requiring right fifth toe amputation. SECONDARY DIAGNOSES: 1. Noncompliance with medical treatment and weightbearing restrictions: 2. Diabetes mellitus type 2. 3. Hypertension. 4. Dyslipidemia. 5. Peripheral neuropathy. 6. Mild renal insufficiency. COMPLICATIONS: None. ADVERSE REACTIONS: None. PROCEDURE PERFORMED: Wound care along with wound VAC. CONSULTATIONS: None. HOSPITAL COURSE: The patient was admitted after being admitted to the hospital with right foot oste omyelitis and undergoing a right fifth toe amputation. He was sent here with oral ciprofloxacin and Flagyl along with wound VAC. He was doing well on the above medications, but not following weightb earing restrictions. He can do started developing some maceration where the wound VAC was placed an d unfortunately therapy was unable to get hold of Dr. Kramer and so I gave them modest to discontinue the wound VAC since the wound was pretty shallow and just manage it with Aquacel AG and dressing th e maceration has pretty much resolved. His wound is slightly increased in size from before, mainly due to him not being compliant with weightbearing restrictions. He is also adamant about going home . His laboratory values are normal. He has not had any fevers. His white count was normal and the plan is to discharge him home and there is some concern that he may not have a place to go home to, but nursing and case management are working. EAP is also involved. I have sent an all his medicat ions that he needs to his [facility] on [address]. He states that he has his other me dications at home. He is to follow with Dr. Kramer tomorrow and then if Dr. Kramer is not able to man age his wound, he will probably refer him to Wound Care MD and the patient was also instructed to ca ll me with any concerns or questions. He is to follow up with me in 2 weeks. DISCHARGE PHYSICAL EXAMINATION: VITAL SIGNS: On the day of discharge, he is afebrile, heart rate is 72, respirations are 18, blood pressure is 134/72, and oxygen saturation is 95%. CARDIOVASCULAR: S1, S2 plus. RESPIRATORY: Normal vesicular breath sounds. ABDOMEN: Soft, nontender, bowel sounds heard in all quadrants. EXTREMITIES: Without cyanosis or clubbing. Right foot wound with dressing. LABORATORY VALUES: Last laboratory values done on the . His white count was 7.8, H\T\H is 10.4 and 32.4. Blood sugars are 171, 160, 105, 142, 96 and 79. Sodium 144, potassium slightly elevated at 5.2, BUN and creatinine 36 and 1.51. DISCHARGE MEDICATIONS: 1. Norvasc 10 mg daily. 2. Aspirin 81 mg daily. 3. Lipitor 40 mg daily. 4. Clonidine 0.1 mg at night. 5. Gabapentin 300 mg t.i.d. 6. Amaryl 2 mg b.i.d. 7. Ibuprofen 200 mg over the counter take 2 tablets t.i.d. p.r.n. for pain. 8. Lisinopril 20 mg daily. 9. Protonix was discontinued. He can take Pepcid OTC b.i.d. if he has any heartburn. DISCHARGE FOLLOWUP: As stated, he is to follow with Dr. Kramer tomorrow. He is to follow up in my o ffice in 2 weeks. He is to call us with any questions or concerns. He is to follow an 1800 calorie heart healthy diet. Continue to follow weightbearing restrictions as instructed by Dr. Kramer and [place] here. No family at the bedside. Case management is working on safe discharge theron nning and I think EAP is involved to follow if it is arranged and if he finds if either has a place to go or he finds a long term then he will be discharged, otherwise he will stay here until safe disch arge can be done per hospital staff.
== END 2017-07-12 15:50 | disposition home or self-care (01) | DRG 638 ==
LOC: NAV ACUTE 16:16
PROVIDERS: ADMIT Internal Medicine; ATTEND Internal Medicine
DX: E11.69 Type 2 diabetes mellitus with other specified complication (principal); M86.9 Osteomyelitis, unspecified; E11.22 Type 2 diabetes mellitus with diabetic chronic kidney disease; E11.42 Type 2 diabetes mellitus with diabetic polyneuropathy; E11.51 Type 2 diabetes mellitus with diabetic peripheral angiopathy without gangrene; E87.5 Hyperkalemia; Z79.84 Long term (current) use of oral hypoglycemic drugs; F31.9 Bipolar disorder, unspecified; Z89.421 Acquired absence of other right toe(s); E78.5 Hyperlipidemia, unspecified; I12.9 Hypertensive chronic kidney disease with stage 1 through stage 4 chronic kidney disease, or unspecified chronic kidney disease; N18.9 Chronic kidney disease, unspecified; Z91.19 Patient's noncompliance with other medical treatment and regimen
CPT/HCPCS: 36415; 36416; 80048; 80053; 85025; 87070; 87205; 87324; 87449; 97602; J1650

== ENCOUNTER 2018-08-10 00:42 | Emergency (ER) | payer MEDICARE, OTHER ==
--- NOTE | 2018-08-10 08:10 | RAD ---
LEFT FOREARM 2 VIEWS: Date: 08/10/18 HISTORY: Injury. Left forearm pain. FINDINGS/IMPRESSION: The left radius and ulna appear intact. An olecranon spur is present. POS: SID
--- NOTE | 2018-08-10 08:12 | RAD ---
LEFT HAND 3 VIEWS: Date: 08/10/18 HISTORY: Injury, left hand pain. FINDINGS/IMPRESSION: No fracture or dislocation is seen. POS: SID
== END 2018-08-10 02:35 ==
LOC: NAV ERS 00:42
DX: S60.212A Contusion of left wrist, initial encounter (principal); I10 Essential (primary) hypertension; E11.9 Type 2 diabetes mellitus without complications; K21.9 Gastro-esophageal reflux disease without esophagitis; E78.5 Hyperlipidemia, unspecified; J44.9 Chronic obstructive pulmonary disease, unspecified; F41.9 Anxiety disorder, unspecified; F31.9 Bipolar disorder, unspecified; F17.210 Nicotine dependence, cigarettes, uncomplicated; Z79.899 Other long term (current) drug therapy; Z79.82 Long term (current) use of aspirin; Z79.84 Long term (current) use of oral hypoglycemic drugs; W19.XXXA Unspecified fall, initial encounter